=== PATIENT | female | born 2000 | race Caucasian/White ===

== ENCOUNTER 2022-05-16 11:58 | Emergency (ER) | payer OTHER, SELFPAY ==
[2022-05-16] MEDS ORDERED: HYDROcodone/Acetaminophen 5/325 mg Tablet ONE (12:36)
[2022-05-16] MEDS ORDERED: AMOXicillin 250 MG CAP ONE (12:39)
== END 2022-05-16 12:43 | disposition home or self-care (01) ==
LOC: BURERS 11:58
DX: H66.92 Otitis media, unspecified, left ear (principal); H60.92 Unspecified otitis externa, left ear
CPT/HCPCS: 99282

== ENCOUNTER 2022-06-18 04:53 | Emergency (ER) | payer OTHER ==
[2022-06-18] MEDS ORDERED: Amoxicillin/Potassium Clav 875 MG TAB ONE (05:15)
== END 2022-06-18 05:38 | disposition home or self-care (01) ==
LOC: BURERS 04:53
DX: J02.9 Acute pharyngitis, unspecified (principal); H65.91 Unspecified nonsuppurative otitis media, right ear
CPT/HCPCS: 99283